=== PATIENT | male | born 1950 | race Two or more races ===

== ENCOUNTER 2018-01-10 05:40 | Emergency (ER) | payer OTHER ==
[~2018-01-10] VITALS: Ht 167.6 cm; Wt 83.9 kg
[2018-01-10 05:56] VITALS: Ht 167.6 cm; Wt 83.9 kg
[2018-01-10 06:47] LABS: BASOPHIL % 0.1 % (0-2); PLATELET COUNT 285 x10^3mcL (130-400); RED CELL DISTRIBUTION WIDTH 13.5 % (11.5-14.5)
[2018-01-10 07:00] LABS: CALCIUM 8.7 mg/dL (8.5-10.1); CARBON DIOXIDE 29.5 mmol/L (21-32); CREATININE SERUM 1.3 mg/dL (0.7-1.3); POTASSIUM SERUM 3.5 mmol/L (3.5-5.1)
[2018-01-10 07:27] VITALS: BP 156/76
== END 2018-01-10 08:30 | disposition short-term general hospital (02) ==
LOC: ED 05:40
PROVIDERS: Emergency Medicine
DX: H40.89 Other specified glaucoma (principal); R51 Headache; I10 Essential (primary) hypertension; E11.9 Type 2 diabetes mellitus without complications
CPT/HCPCS: J1120; J3010; J7030